=== PATIENT | male | born 1995 | race Two or more races ===

== ENCOUNTER 2020-12-23 09:57 | Emergency (ER) | payer OTHER ==
[~2020-12-23] VITALS: Ht 172.7 cm; Wt 65.8 kg
[2020-12-23] MEDS ORDERED: ZITHROMAX500 MG PO (14:33)
== END 2020-12-23 14:40 | disposition home or self-care (01) ==
LOC: ER 09:57
DX: B34.9 Viral infection, unspecified (principal); Z20.822 Contact with and (suspected) exposure to COVID-19

== ENCOUNTER 2021-01-01 11:17 | Emergency (ER) | payer OTHER ==
[~2021-01-01] VITALS: Ht 172.7 cm; Wt 65.8 kg
[~2021-01-01 11:17] MED LIST: ZITHROMAX500 MG PO
== END 2021-01-01 16:04 | disposition home or self-care (01) ==
LOC: ER 11:17
DX: S00.83XA Contusion of other part of head, initial encounter (principal); S00.531A Contusion of lip, initial encounter; W22.8XXA Striking against or struck by other objects, initial encounter; Y93.89 Activity, other specified; Y92.69 Other specified industrial and construction area as the place of occurrence of the external cause; Y99.8 Other external cause status